=== PATIENT | male | born 1985 | race Caucasian/White ===

== ENCOUNTER 2018-10-01 15:46 | Emergency (ER) | payer SELFPAY ==
[2018-10-01] MEDS ORDERED: Diphtheria,Pertussis(Acell),Tetanus Vaccine 0.5 ML Syringe IM ONE (15:52)
[2018-10-01] MEDS ORDERED: Bacitracin Oint 1 GM U/D Packet TOP ONE ×2 (15:52→15:58)
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
[2018-10-01 17:14] LABS: CHLORIDE,CL 104 mmol/L (98-107); SODIUM,NA 143 mmol/L (136-148)
== END 2018-10-01 17:25 | disposition home or self-care (01) ==
LOC: MW.ED 15:46
DX: S09.90XA Unspecified injury of head, initial encounter (principal); S90.31XA Contusion of right foot, initial encounter; S30.810A Abrasion of lower back and pelvis, initial encounter; Z23 Encounter for immunization; V86.59XA Driver of other special all-terrain or other off-road motor vehicle injured in nontraffic accident, initial encounter
CPT/HCPCS: 36415; 70450; 70450-26; 71045; 71045-26; 72100; 72100-26; 72125; 72125-26; 72170; 72170-26; 73630-26-RT; 73630-RT; 80053; 85025; 90471; 90715; 93005; 99284; 99284-25

== ENCOUNTER 2018-10-07 13:49 | Emergency (ER) | payer BC ==
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
== END 2018-10-07 15:06 | disposition home or self-care (01) ==
LOC: MW.ED 13:49
DX: S99.921D Unspecified injury of right foot, subsequent encounter (principal); Z76.0 Encounter for issue of repeat prescription; V86.59XD Driver of other special all-terrain or other off-road motor vehicle injured in nontraffic accident, subsequent encounter
CPT/HCPCS: 73630-26-RT; 73630-RT; 99282-25; 99283

== ENCOUNTER 2020-12-08 20:41 | Emergency (ER) | payer BC, OTHER ==
--- NOTE | 2020-12-08 23:08 | EDM.PDOC ---
ED HPI GENERAL MEDICAL PROBLEM - General Chief Complaint: ENT Problem Stated Complaint: possable sinus infection Time Seen by Provider: 12/08/20 22:50 - History of Present Illness INITIAL COMMENTS - FREE TEXT/NARRATIVE: 35-year-old male who is otherwise well presenting with 2 to 3 days of gradually worsening nasal congestion runny nose and now today sore throat and hoarse voice. No fevers no neck pain no myalgias or arthralgias no nausea or vomiting and he otherwise feels quite well. He has been doing Sudafed for decongestant as well as throat lozenges and throat sprays they provide transient relief only. Face/Facial Pain Score (Numeric/FACES): 6 - Related Data Allergies Allergy/AdvReac Type Severity Reaction Status Date / Time No Known Allergies Allergy Verified 12/08/20 22:49 Home Meds: Home Meds . [No Known Home Meds] 12/08/20 [History] Past Medical History - Past Health History Medical/Surgical History: Denies Medical/Surgical History - Infectious Disease History Infectious Disease History: Reports: Chicken Pox, Shingles Social & Family History - Family History Family Medical History: No Pertinent Family History - Tobacco Use Tobacco Use Status *Q: Never Tobacco User Second Hand Smoke Exposure: No - Caffeine Use Caffeine Use: Reports: Coffee, Energy Drinks, Soda - Recreational Drug Use Recreational Drug Use: No ED ROS GENERAL - Review of Systems Review Of Systems: See Below Free Text/Narrative/Comment: General: No fever. Skin: No rash. Eyes: No vision problems. ENT: Per HPI Neck: No neck stiffness. Respiratory: No shortness of breath. Cardiac: No chest pain. Gastrointestinal: No nausea, vomiting or abdominal pain Musculoskeletal: No myalgias/arthralgias. Neurologic: No headache. ED EXAM, GENERAL - Physical Exam Exam: See Below Free Text/Narrative:: General Appearance: No acute distress, appears comfortable Skin: No rash HEENT: Normocephalic/atraumatic, sclera anicteric, mucous membranes moist, posterior oropharyngeal erythema uvula midline no tonsillar exudate or swelling no submental or sublingual swelling no trismus Neck: Normal range of motion Chest and Lungs: Bilateral breath sounds, clear to auscultation Cardiovascular: Regular rate and rhythm, no murmur Musculoskeletal: No edema or tenderness Neurologic: Awake, alert, no obvious deficits, moving all extremities Psychiatric: Appropriate, cooperative Course - Vital Signs Last Recorded V/S: Last Vital Signs Temp 97.1 F 12/08/20 22:45 Pulse 89 12/08/20 22:45 Resp 14 12/08/20 22:45 BP 138/87 12/08/20 22:45 Pulse Ox 96 12/08/20 22:45 - Orders/Labs/Meds Labs: Laboratory Tests 12/08/20 12/08/20 Range/Units 23:00 23:35 SARS-CoV-2 RNA (CHRIS) NEGATIVE (NEGATIVE) Group A Strep (PCR) NOT DETECTED (NOT DETECT) Meds: Medications Discontinued Medications Generic Name Dose Route Start Last Admin Trade Name Chavez PRN Reason Stop Dose Admin Dexamethasone 10 mg 12/08/20 23:32 12/08/20 23:58 Dexamethasone 10 Mg/Ml Sdv IVPUSH 12/08/20 23:33 10 mg ONETIME ONE Administration Ibuprofen 600 mg 12/08/20 23:53 12/08/20 23:58 Ibuprofen 600 Mg Tab PO 12/08/20 23:54 600 mg ONETIME ONE Administration Departure - Departure Time of Disposition: 00:34 Disposition: Home, Self-Care 01 Condition: Good Clinical Impression: Viral laryngitis - Discharge Information *PRESCRIPTION DRUG MONITORING PROGRAM REVIEWED*: Not Applicable *COPY OF PRESCRIPTION DRUG MONITORING REPORT IN PATIENT EL: Not Applicable Instructions: Laryngitis, [id number] Forms: ED Department Discharge Additional Instructions: Your testing today showed that you do not have strep throat and your COVID-19 test was negative. Your symptoms should gradually improve over the next few days. The Decadron is a long-acting steroid which will last in your system for the next 38 to 72 hours. This should get you through the worst of the illness. If you have recurrence of severe throat pain difficulty swallowing difficulty breathing or any other new symptoms that concern you please call your doctor or return to the ER. If you are not back to your normal state of health within 7 to 10 days please follow-up with your primary care doctor. If you do not have a primary care doctor, then you can follow-up with one of the clinics listed below. [facility] [address] [place] [address] [id number] [place] [id number] The following information is given to patients seen in the emergency department who are being discharged to home. This information is to outline your options for follow-up care. We provide all patients seen in our emergency department with a follow-up referral. The need for follow-up, as well as the timing and circumstances, are variable depending upon the specifics of your emergency department visit. If you don't have a primary care physician on staff, we will provide you with a referral. We always advise you to contact your personal physician following an emergency department visit to inform them of the circumstance of the visit and for follow-up with them and/or the need for any referrals to a consulting specialist. The emergency department will also refer you to a specialist when appropriate. This referral assures that you have the opportunity for follow-up care with a specialist. All of these measure are taken in an effort to provide you with optimal care, which includes your follow-up. Under all circumstances we always encourage you to contact your private physician who remains a resource for coordinating your care. When calling for follow-up care, please make the office aware that this follow-up is from your recent emergency room visit. If for any reason you are refused follow-up, please contact the [facility] Emergency Department at and asked to speak to the emergency department charge nurse. Sepsis Event Note (ED) - Evaluation Sepsis Screening Result: No Definite Risk - Focused Exam Vital Signs: Vital Signs Temp Pulse Resp BP Pulse Ox 12/08/20 22:45 97.1 F 89 14 138/87 96 - Assessment/Plan Assessment:: 35-year-old male presenting with signs and symptoms most consistent with a viral upper respiratory infection and laryngitis. Covid considered and swab sent strep considered and swab sent. Could consider Decadron for symptomatic therapy as well. 0035: Swabs are negative. Patient given Decadron and ibuprofen. Patient felt safe for discharge. Return precautions discussed and understood.
[2020-12-08] MEDS ORDERED: Dexamethasone 10 MG/ML SDV IVPUSH ONE (23:32)
[2020-12-08] MEDS ORDERED: Ibuprofen 600 MG Tab PO ONE (23:53)
== END 2020-12-09 00:45 | disposition home or self-care (01) ==
LOC: MW.ED 20:41
DX: J04.0 Acute laryngitis (principal); B97.89 Other viral agents as the cause of diseases classified elsewhere; Z20.822 Contact with and (suspected) exposure to COVID-19
CPT/HCPCS: 87635; 87651; 96374; 99283; A9270; J1100; U0002